=== PATIENT | male | born 1980 | race Caucasian/White ===

== ENCOUNTER 2016-07-19 18:54 | Observation (INO) | payer SELFPAY ==
[~2016-07-19] VITALS: Ht 185.4 cm; Wt 106.8 kg
[2016-07-19 18:56] VITALS: BP 138/83; PULSE 73; RESP 16; TEMP 98.2; O2SAT 96
--- NOTE | 2016-07-19 19:43 | PD ---
HPI Chief Complaint: Chest Pain Time Seen by Provider: 19:41 Travel History International Travel<30 days: No Contact w/Intl Traveler<30days: No Traveled to known affect area: No History of Present Illness HPI 35-year-old male with no significant medical history presents to the emergency department for evaluation a left-sided chest pain. Patient states it began this afternoon and did not go away. He states it's been happening more frequently over the last 2 weeks. He states the pain in his left chest described as sharp and stabbing. He states he has some aching in the left side of his neck associated with it. No nausea or vomiting. No shortness of breath. No focal deficits or weakness. Patient does smoke 2 packs of tobacco cigarettes daily. He states he always has wheezes in a "smoker's cough." He has no other symptoms to report at this time. [facility] Past Medical History Medical History: Denies Significant Hx Social History Tobacco Use: Yes Allergies-Medications (Allergen,Severity, Reaction): Coded Allergies: Keflex (Verified Allergy, Severe, Shortness of Breath, 07/19/16) Penicillin (Verified Allergy, Severe, Shortness of Breath, 07/19/16) Reported Meds & Prescriptions Reported Meds & Active Scripts Active Review of Systems Except as stated in HPI: all other systems reviewed are Neg Physical Exam Narrative GENERAL: Well-nourished male patient, ambulatory and in no acute distress SKIN: Warm and dry. HEAD: Atraumatic. Normocephalic. EYES: Pupils equal and round. No scleral icterus. No injection or drainage. ENT: No nasal bleeding or discharge. Mucous membranes pink and moist. NECK: Trachea midline. No JVD. CARDIOVASCULAR: Regular rate and rhythm. No murmur appreciated. RESPIRATORY: No accessory muscle use. Wheezes throughout. Breath sounds equal bilaterally. GASTROINTESTINAL: Abdomen soft, non-tender, nondistended. Hepatic and splenic margins not palpable. MUSCULOSKELETAL: No obvious deformities. No clubbing. No cyanosis. No edema. NEUROLOGICAL: Awake and alert. No obvious cranial nerve deficits. Motor grossly within normal limits. Normal speech. PSYCHIATRIC: Appropriate mood and affect; insight and judgment normal. Data Data Last Documented VS Vital Signs Date Time Temp Pulse Resp B/P Pulse Ox O2 Delivery O2 Flow Rate FiO2 07/19/16 22:16 97.8 72 18 126/73 95 Room Air Orders Electrocardiogram (07/19/16 19:11) Complete Blood Count With Diff (07/19/16 19:11) Basic Metabolic Panel (Bmp) (07/19/16 19:11) Ckmb (Isoenzyme) Profile (07/19/16 19:11) Troponin I (07/19/16 19:11) Prothrombin Time / Inr (Pt) (07/19/16 19:32) Act Partial Throm Time (Ptt) (07/19/16 19:32) Chest, Single Ap (07/19/16 19:32) Aspirin Chew (Aspirin Chew) (07/19/16 19:45) Magnesium (Mg) (07/19/16 19:11) CKMB (07/19/16 19:34) CKMB% (07/19/16 19:34) Methylprednisolone So Succ Inj (Solumedr (07/19/16 23:15) Albuterol-Ipratropium Neb (Duoneb Neb) (07/19/16 23:15) Admit Order (Ed Use Only) (07/19/16 23:05) Labs Laboratory Tests Test 07/19/16 19:34 White Blood Count 10.5 TH/MM3 Red Blood Count 5.32 MIL/MM3 Hemoglobin 16.9 GM/DL Hematocrit 48.2 % Mean Corpuscular Volume 90.6 FL Mean Corpuscular Hemoglobin 31.7 PG Mean Corpuscular Hemoglobin 34.9 % Concent Red Cell Distribution Width 13.1 % Platelet Count 209 TH/MM3 Mean Platelet Volume 8.3 FL Neutrophils (%) (Auto) 59.7 % Lymphocytes (%) (Auto) 29.8 % Monocytes (%) (Auto) 8.1 % Eosinophils (%) (Auto) 1.8 % Basophils (%) (Auto) 0.6 % Neutrophils # (Auto) 6.3 TH/MM3 Lymphocytes # (Auto) 3.1 TH/MM3 Monocytes # (Auto) 0.9 TH/MM3 Eosinophils # (Auto) 0.2 TH/MM3 Basophils # (Auto) 0.1 TH/MM3 CBC Comment DIFF FINAL Differential Comment Prothrombin Time 10.5 SEC Prothromb Time International 1.0 RATIO Ratio Activated Partial 28.7 SEC Thromboplast Time Sodium Level 139 MEQ/L Potassium Level 3.7 MEQ/L Chloride Level 104 MEQ/L Carbon Dioxide Level 25.2 MEQ/L Anion Gap 10 MEQ/L Blood Urea Nitrogen 16 MG/DL Creatinine 1.00 MG/DL Estimat Glomerular Filtration 86 ML/MIN Rate Random Glucose 96 MG/DL Calcium Level 8.6 MG/DL Magnesium Level 1.9 MG/DL Total Creatine Kinase 161 U/L Creatine Kinase MB 1.4 NG/ML Troponin I LESS THAN 0.02 NG/ML MDM Medical Decision Making Medical Screen Exam Complete: Yes Emergency Medical Condition: Yes Medical Record Reviewed: Yes Differential Diagnosis ACS versus chest wall pain versus pleuritic pain versus costochondritis Narrative Course 35-year-old male presents to the emergency department for evaluate left-sided chest pain. Patient appears without distress. Right now his pain is a 5 out of 10. Chest pain protocol was initiated. Patient was given aspirin in triage. Once a medical bed becomes available, patient will be transferred and care assumed by that provider. Scripts Albuterol 6.7 GM Inh (Proventil Hfa 6.7 GM Inh)90 Mcg/Act Aer1 Puff INH Q4H PRN (SHORTNESS OF BREATH) #1 INHALER Ref 0 Prov:Rachael Starks 07/20/16 Condition: Stable Quita Hinkle Jul 19, 2016 19:43
[2016-07-19] MEDS ORDERED: ASPIRIN 81 MG CHEW TAB PO ONE (19:45)
[2016-07-19 20:05] LABS: AUTOMATED NEUTROPHIL # 6.3 TH/MM3 (1.8-7.7); BASOPHIL # 0.1 TH/MM3 (0-0.2); BASOPHIL % 0.6 % (0.0-2.0); EOSINOPHIL # 0.2 TH/MM3 (0-0.4); EOSINOPHIL % 1.8 % (0.0-4.0); HEMATOCRIT 48.2 % (39.0-51.0); HEMO FLAGS DIFF FINAL; LYMPH % 29.8 % (9.0-44.0); LYMPHOCYTE # 3.1 TH/MM3 (1.0-4.8); MEAN CELL VOLUME 90.6 FL (80.0-100.0); MEAN CORPUSCULAR HEMOGLOBIN 31.7 PG (27.0-34.0); MEAN CORPUSCULAR HGB CONC 34.9 % (32.0-36.0); MONO % 8.1 % (0.0-8.0); NEUT % 59.7 % (16.0-70.0); PLATELET COUNT 209 TH/MM3 (150-450); RED BLOOD COUNT 5.32 MIL/MM3 (4.50-5.90); RED CELL DISTRIBUTION WIDTH 13.1 % (11.6-17.2); WHITE BLOOD COUNT 10.5 TH/MM3 (4.0-11.0)
[2016-07-19 20:22] LABS: ANION GAP 10 MEQ/L (5-15); BICARBONATE 25.2 MEQ/L (21.0-32.0); BLOOD UREA NITROGEN 16 MG/DL (7-18); CHLORIDE 104 MEQ/L (98-107); GLOMERULAR FILTRATION RATE 86 ML/MIN (>89); MAGNESIUM 1.9 MG/DL (1.5-2.5); POTASSIUM 3.7 MEQ/L (3.5-5.1); SODIUM (NA) 139 MEQ/L (136-145)
[2016-07-19 20:26] LABS: CREATINE KINASE 161 U/L (39-308)
[2016-07-19 20:37] LABS: APTT (PATIENT) 28.7 SEC (24.3-30.1); PROTHROMBIN TIME - PATIENT 10.5 SEC (9.8-11.6)
[2016-07-19 20:38] LABS: CKMB 1.4 NG/ML (0.5-3.6)
--- NOTE | 2016-07-19 21:36 | RADRPT ---
EXAM DATE/TIME: 07/19/2016 19:58 [facility] COMPARISON: No previous studies available for comparison. INDICATIONS : Chest pain. MEDICAL HISTORY : Smoking. SURGICAL HISTORY : None. ENCOUNTER: Subsequent ACUITY: 2 days PAIN SCORE: 7/10 LOCATION: Left middle chest FINDINGS: A single view of the chest demonstrates the lungs to be symmetrically aerated without evidence of mas s, infiltrate or effusion. The cardiomediastinal contours are unremarkable. Osseous structures are intact. CONCLUSION: No acute disease. Dony Bush MD on July 19, 2016 at 21:34 Board Certified Radiologist. This report was verified electronically.
[2016-07-19 22:16] VITALS: BP 126/73; PULSE 72; RESP 18; TEMP 97.8; O2SAT 95
--- NOTE | 2016-07-19 23:05 | PD ---
Physical Exam Narrative Patient was seen by my diploma dental assistant and signed out to me. Patient has history of reactive airway disease. Patient is a smoker. Examination: patient has mild to moderate expiratory wheezes bilaterally. No rhonchi. Data Data Last Documented VS Vital Signs Date Time Temp Pulse Resp B/P Pulse Ox O2 Delivery O2 Flow Rate FiO2 07/19/16 22:16 97.8 72 18 126/73 95 Room Air Orders Electrocardiogram (07/19/16 19:11) Complete Blood Count With Diff (07/19/16 19:11) Basic Metabolic Panel (Bmp) (07/19/16 19:11) Ckmb (Isoenzyme) Profile (07/19/16 19:11) Troponin I (07/19/16 19:11) Prothrombin Time / Inr (Pt) (07/19/16 19:32) Act Partial Throm Time (Ptt) (07/19/16 19:32) Chest, Single Ap (07/19/16 19:32) Aspirin Chew (Aspirin Chew) (07/19/16 19:45) Magnesium (Mg) (07/19/16 19:11) CKMB (07/19/16 19:34) CKMB% (07/19/16 19:34) Labs Laboratory Tests Test 07/19/16 19:34 White Blood Count 10.5 TH/MM3 Red Blood Count 5.32 MIL/MM3 Hemoglobin 16.9 GM/DL Hematocrit 48.2 % Mean Corpuscular Volume 90.6 FL Mean Corpuscular Hemoglobin 31.7 PG Mean Corpuscular Hemoglobin 34.9 % Concent Red Cell Distribution Width 13.1 % Platelet Count 209 TH/MM3 Mean Platelet Volume 8.3 FL Neutrophils (%) (Auto) 59.7 % Lymphocytes (%) (Auto) 29.8 % Monocytes (%) (Auto) 8.1 % Eosinophils (%) (Auto) 1.8 % Basophils (%) (Auto) 0.6 % Neutrophils # (Auto) 6.3 TH/MM3 Lymphocytes # (Auto) 3.1 TH/MM3 Monocytes # (Auto) 0.9 TH/MM3 Eosinophils # (Auto) 0.2 TH/MM3 Basophils # (Auto) 0.1 TH/MM3 CBC Comment DIFF FINAL Differential Comment Prothrombin Time 10.5 SEC Prothromb Time International 1.0 RATIO Ratio Activated Partial 28.7 SEC Thromboplast Time Sodium Level 139 MEQ/L Potassium Level 3.7 MEQ/L Chloride Level 104 MEQ/L Carbon Dioxide Level 25.2 MEQ/L Anion Gap 10 MEQ/L Blood Urea Nitrogen 16 MG/DL Creatinine 1.00 MG/DL Estimat Glomerular Filtration 86 ML/MIN Rate Random Glucose 96 MG/DL Calcium Level 8.6 MG/DL Magnesium Level 1.9 MG/DL Total Creatine Kinase 161 U/L Creatine Kinase MB 1.4 NG/ML Troponin I LESS THAN 0.02 NG/ML [facility] Supervised Visit with ANDRÉS: Yes Interpretation(s) 2300 p.m. EKG shows sinus rhythm nonspecific ST-T wave change. Incomplete right bundle-branch block. Chest x-ray shows no acute consolidation. CBC within normal limit. BMP within normal limit. Cardiac enzymes are normal. Narrative Course Albuterol with Atrovent unit dose treatment 2. Solu-Medrol 125 Mg IV. Diagnosis Primary Impression: Chest pain Qualified Code: R07.9 - Chest pain, unspecified type Additional Impression: Reactive airway disease Qualified Code: J45.20 - Reactive airway disease, mild intermittent, uncomplicated Admitting Information Admitting Physician Requests: Observation Scripts No Active Prescriptions or Reported Meds Condition: Stable Mayito Escalera MD Jul 19, 2016 23:05
[2016-07-19] MEDS ORDERED: methylPREDNISolone SOD SUCC 125 MG/2 ML VIAL IVP ONE (23:15)
[2016-07-19] MEDS ORDERED: ONDANSETRON HCL 4 MG/2 ML VIAL IV PRN (23:15)
[2016-07-19] MEDS ORDERED: SODIUM CHLORIDE 0.9% FLUSH 5 ML FLUSH IVF PRN (23:15)
[2016-07-19] MEDS ORDERED: ACETAMINOPHEN 500 MG CPLT PO PRN (23:15)
[2016-07-19] MEDS: RESP: ALBUTEROL 2.5 MG/IPRATROPIUM 0.5 MG NEB (SCH) INH ×2 (23:47→23:48)
[2016-07-19 23:51] VITALS: O2SAT 96
[2016-07-20] VITALS (7 sets, daily range): BP systolic 104–132; BP diastolic 67–76; PULSE 54–90; RESP 18–21; TEMP 98–98.9; O2SAT 93–96
[2016-07-20 00:41] LABS: CREATINE KINASE 130 U/L (39-308)
[2016-07-20 00:53] LABS: CKMB 0.8 NG/ML (0.5-3.6)
[2016-07-20 03:33] LABS: CREATINE KINASE 132 U/L (39-308)
[2016-07-20 03:49] LABS: CKMB 0.8 NG/ML (0.5-3.6)
[2016-07-20] MEDS ORDERED: SODIUM CHLORIDE 0.9% FLUSH 5 ML FLUSH IVF SCH (09:00)
[2016-07-20] MEDS: RESP: ALBUTEROL 2.5 MG/IPRATROPIUM 0.5 MG NEB (SCH) NEB ×2 (09:57→13:04)
--- NOTE | 2016-07-20 10:43 | EKG ---
Date Performed: 07/20/2016 Time Performed: 02:37:48 PTAGE: 35 years EKG: Sinus rhythm POSSIBLE RIGHT VENTRICULAR CONDUCTION DELAY BORDERLINE ECG Since PREVIOUS TRACING , no significant change noted PREVIOUS TRACIN07/19/2016 23.37 DOCTOR: Melissa Downey Interpretating Date/Time 07/20/2016 10:42:19
--- NOTE | 2016-07-20 10:44 | EKG ---
Date Performed: 07/19/2016 Time Performed: 23:37:47 PTAGE: 35 years EKG: Sinus rhythm NORMAL ECG Since PREVIOUS TRACING , no significant change noted PREVIOUS TRACIN07/19/2016 19.25 DOCTOR: Melissa Downey Interpretating Date/Time 07/20/2016 10:42:58
--- NOTE | 2016-07-20 10:46 | EKG ---
Date Performed: 07/19/2016 Time Performed: 19:25:07 PTAGE: 35 years EKG: Sinus rhythm INCOMPLETE RIGHT BUNDLE BRANCH BLOCK BORDERLINE ECG Since PREVIOUS TRACING , no significant change noted PREVIOUS TRACIN02/16/2016 21.48 DOCTOR: Melissa Downey Interpretating Date/Time 07/20/2016 10:45:12
--- NOTE | 2016-07-20 11:51 | HHI.DCPOC ---
Discharge Care Plan Diagnosis: (1) Atypical chest pain (2) Tobacco abuse Goals to Promote Your Health * To prevent worsening of your condition and complications * To maintain your health at the optimal level Directions to Meet Your Goals Take your medications as prescribed Follow your dietary instruction Follow activity as directed Keep your appointments as scheduled Take your immunizations and boosters as scheduled If your symptoms worsen call your PCP, if no PCP go to Urgent Care Center or Emergency Room Smoking is Dangerous to Your Health. Avoid second hand smoke Call the 24-hour hour crisis hotline for domestic abuse at Rachael Starks Jul 20, 2016 11:51
[2016-07-20] MEDS ORDERED: ALBU6.7H INH (12:02)
--- NOTE | 2016-07-20 16:15 | MH ---
cc: DENNIS CORDOVA MD DATE OF ADMISSION: 07/19/2016 DATE OF 1980 CHIEF COMPLAINT Chest tightness. HISTORY OF PRESENT ILLNESS This is a 35-year-old patient who presents to the emergency room with left anterior chest tightness, severity of 4/10 with radiation to the left side of his neck. He also was diaphoretic. There was no nausea or shortness of breath. No known precipitating factors or relieving factors. The patient states he has actually had chest pain two other times in the past year for which he was seen at a local hospital and also a hospital in [place]. There was never any formal cardiac testing done. The patient also states he has chest tightness on a daily basis. However, yesterday's episode at approximately 06:00 p.m. lasted about 30 minutes and was rated as a 7/10 were normally the tightness on a regular basis is around a 7/10. PAST MEDICAL HISTORY None. PAST SURGICAL HISTORY None. FAMILY HISTORY He is adopted, therefore does not know his biological parents, he does not have their history and he does not have any siblings. SOCIAL HISTORY He has smoked since the age of 7. Since the age of 13 he smoked one carton of cigarettes within a week's time. Currently he smokes two packs of cigarettes daily. He drinks [id number] nights out of the week a case of beer. Denies any illegal drug use. CARDIAC RISK FACTORS No known hypertension, diabetes or hyperlipidemia. He is active. He works with a construction company. He has not had any formal cardiac testing. He does not have a primary care provider or insurance at this time. ALLERGIES ALLERGIC TO KEFLEX. PENICILLIN. MEDICATIONS He is not on any on any prescription medications and does not take any vitamins or supplements. REVIEW OF SYSTEMS General: No recent illness, fevers, chills, weakness, malaise, change in appetite. HEENT: No headache or visual changes or nasal congestion or drainage or dysphagia. Cardiovascular: As stated above. No palpitations, intermittent leg pain or dizziness. Respiratory: States that over the past three years he wheezes on a daily basis. In the last two weeks he has had slight increase in sputum production and coughs on a regular basis. He relates all this to his longstanding smoking history. No known asthma or COPD. Abdomen: No bowel changes such as diarrhea, constipation, pain, distension, blood in stool or dark stool, change in appetite, nausea, vomiting or unintentional weight gain or weight loss. : No dysuria or urgency or frequency. Extremities: No lower leg edema. Musculoskeletal: No change in ROM. Neuro: No difficulty with balance, motor or sensory deficits, loss of consciousness. Skin: He has no concerning lesions. PHYSICAL EXAMINATION Vital Signs: Temperature 98, pulse 86, respiratory 19 and blood pressure 132/76 and 93% on room air. General: He is alert, well-nourished, well-developed, moderately obese, in no acute distress. Pleasant male. Head: Normocephalic, atraumatic. Eyes: Sclerae clear. Conjunctivae without injection. Pupils are equal and round. ENT: Mucous membranes are pink and moist. Neck: Supple. Trachea is midline. Cardiovascular: RRR without murmur, rub or gallop. No JVD. S1-S2. No S3. No S4. No carotid bruits appreciated. Respiratory: He has inspiratory and expiratory wheezing. Symmetrical chest rise. Able to speak in full sentences. There are no crackles or wheezing. No use of accessory muscles. Abdomen: Obese, soft, nontender, nondistended. No masses. Positive bowel tones. Extremities: Pulses +2 x 4. There is no dependent edema. Neuro: CN II-XII is grossly intact. Motor strength 5/5. Gait is within normal limits. Psych: He is alert and oriented x 3, has a pleasant affect, appropriate to mood, insight and judgment. Skin: Normal turgor, normal texture with sluggish capillary refill. There are no rashes. LABORATORY CBC is unremarkable. Chemistry is unremarkable. Three sets of cardiac enzymes are negative. Coagulations unremarkable. Chest x-ray read by the radiologist has a conclusion of no acute disease. Three EKGs show a normal sinus rhythm with no ST or T-segment changes. First EKG is noted to have an incomplete right bundle branch block. ASSESSMENT AND PLAN 1. Chest pain. The patient was admitted to the chest pain center and ruled out with three sets of EKGs and cardiac enzymes. He was seen and evaluated by Dr. Dennis Cordova this a.m. He underwent an exercise stress test which was unremarkable. He will be discharged later this afternoon, all has been discussed with him and he is agreeable to this plan of care. 2. Tobacco use. He has been strongly encouraged and stressed the importance of tobacco cessation. Discussed and counseled the patient to quit smoking in length. We have also placed a consult to see if he would be accepted to the [facility] for further testing. Regarding his probable restrictive lung disease, he is encouraged, if he is unable to go to the [facility] to follow to establish with a primary care provider. Dictated by: JAMARI Keys Harish Polk/JOSE /12:47 PM /4:13 PM
--- NOTE | 2016-07-21 15:36 | TR ---
Date Performed: 07/20/2016 Time Performed: 10:48:08 DOCTOR: Jacques Hughes DRUG LIST: CLINICAL HISTORY: CHEST PAIN REASON FOR TEST: Chest pain REASON FOR ENDING: OBSERVATION: CONCLUSION: Andre protocol completed. Stopped sec to reaching target heart rate and leg fatigue. Maximum VS=136 Target HR Achieved=86.0% Maximum RJ=082/80 Total Exercise Time=6:47. No ectopy. Good exercise tolerance. Upsloping J point depression. No reprod chest discomfort. Hypertensive bp respons e. Recovery quick and unremarkable. COMMENTS: Patient exercised using the Andre protocol. No electrocardiographic changes were seen to suggest ischemia. Hemodynamic response to exercise was normal. No significant arrhythmia was prese nt.
== END 2016-07-20 17:38 | disposition home or self-care (01) ==
LOC: NEPA 18:54 → NEDA 23:07 → NEPHCDU 07-20 03:13
PROVIDERS: ADMIT Internal Medicine Interventional Cardiology; ATTEND Internal Medicine Interventional Cardiology
DX: R07.89 Other chest pain (principal); J45.20 Mild intermittent asthma, uncomplicated; R94.31 Abnormal electrocardiogram [ECG] [EKG]; F17.210 Nicotine dependence, cigarettes, uncomplicated
CPT/HCPCS: 71010; 80048; 82550; 82552; 83735; 84484; 85025; 85610; 85730; 93005; 93017; 94640; 94664; 99285; G0378; J2930

== ENCOUNTER 2017-03-22 09:55 | Emergency (ER) | payer SELFPAY ==
[~2017-03-22] VITALS: Ht 185.4 cm; Wt 110.0 kg
[~2017-03-22 09:55] MED LIST: ALBU6.7H INH
[2017-03-22 09:57] VITALS: BP 142/95; PULSE 102; RESP 14; TEMP 98.2; O2SAT 99
--- NOTE | 2017-03-22 10:16 | PD ---
HPI Chief Complaint: Edema Time Seen by Provider: 10:10 Travel History International Travel<30 days: No Contact w/Intl Traveler<30days: No Traveled to known affect area: No History of Present Illness HPI Is a 36-year-old man who presents emergency department complaining of right testicle pain. Going On for several days. He states it stopped doing before but it got better on its own. He states maybe a little bit of penile discharge several days ago but is not real sure. No dysuria. Sexually active with one woman only, but not recently. No trauma. No other complaints. History Social History Alcohol Use: Yes Tobacco Use: Yes Allergies-Medications (Allergen,Severity, Reaction): Coded Allergies: cephalexin (Unverified Allergy, Severe, Shortness of Breath, 03/22/17) penicillin G (Unverified Allergy, Severe, Shortness of Breath, 03/22/17) Reported Meds & Prescriptions Reported Meds & Active Scripts Active No Active Prescriptions or Reported Medications Review of Systems Except as stated in HPI: all other systems reviewed are Neg Physical Exam Narrative GENERAL: Well-appearing 36-year-old man, no acute distress. SKIN: Focused skin assessment warm/dry. HEAD: Atraumatic. Normocephalic. EYES: Pupils equal and round. No scleral icterus. No injection or drainage. ENT: No nasal bleeding or discharge. Mucous membranes pink and moist. NECK: Trachea midline. No JVD. CARDIOVASCULAR: Regular rate and rhythm. No murmur appreciated. RESPIRATORY: No accessory muscle use. Clear to auscultation. Breath sounds equal bilaterally. GASTROINTESTINAL: Abdomen soft, non-tender, nondistended. Hepatic and splenic margins not palpable. : Normal external male genitalia. Couple small fleshy papules on the penile shaft. Right testicle with epididymal swelling and tenderness. Testicle itself appears roughly normal size. There is normal lie of testicles. No penile discharge. Data Data Last Documented VS Vital Signs Date Time Temp Pulse Resp B/P (MAP) Pulse Ox O2 Delivery O2 Flow Rate FiO2 03/22/17 09:57 98.2 102 14 142/95 (111) 99 Orders Orders Us Testicles W Doppler (03/22/17 ) Urinalysis - C+S If Indicated (03/22/17 10:10) Gc And Chlamydia Pcr (03/22/17 10:10) Urine Culture (03/22/17 10:14) Labs Laboratory Tests Test 03/22/17 10:14 Urine Color YELLOW Urine Turbidity CLEAR Urine pH 5.5 Urine Specific [place] 1.022 Urine Protein NEG mg/dL Urine Glucose (UA) NEG mg/dL Urine Ketones NEG mg/dL Urine Occult Blood TRACE Urine Nitrite NEG Urine Bilirubin NEG Urine Urobilinogen LESS THAN 2.0 MG/DL Urine Leukocyte Esterase SMALL Urine RBC 2 /hpf Urine WBC 10 /hpf Urine Mucus FEW /lpf Microscopic Urinalysis Comment CULTURE INDICATED Chlamydia trachomatis DNA (PCR) NOT DETECTED Neisseria gonorrhoeae DNA (PCR) DETECTED MDM Medical Decision Making Medical Screen Exam Complete: Yes Emergency Medical Condition: Yes Interpretation(s) LABS: UA with trace pyuria. Testicular ultrasound: Mild hyperemic epididymis. Differential Diagnosis Orchitis, epididymitis, infection, other Narrative Course 36-year-old male with likely varicocele, less likely epididymitis. We'll check labs, ultrasound, likely discharge. FINAL: Ultrasound CONSIST WITH EPIDIDYMITIS, TRACE PYURIA SUGGESTIVE OF EPIDIDYMITIS. Diagnosis Primary Impression: Epididymitis Additional Instructions: Take antibiotics as prescribed. Follow up with her primary doctor in the next 2-4 days. Return to the emergency department for any new or worsening symptoms. Med/Other Pt SpecificInfo: Prescription(s) given Scripts Doxycycline Hyclate (Doxycycline Hyclate) 100 Mg Cap 100 MG PO BID for Infection, #28 CAP 0 Refills Prov: Marol Collins MD 03/22/17 Disposition: 01 DISCHARGE HOME Condition: Stable Marlo Collins MD Mar 22, 2017 10:16
[2017-03-22 10:38] LABS: BLOOD, URINE TRACE (NEG); COMMENT (UR) CULTURE INDICATED; CULTURE IF INDICATED CULTURE INDICATED; GLUCOSE,URINE NEG (NEG); KETONE, URINE NEG (NEG); MUCUS URINE FEW /lpf (OCC); NITRITE,URINE NEG (NEG); PH, URINE 5.5 (5.0-8.5); URINE COLOR YELLOW (YELLW/STRAW)
[2017-03-22 12:49] LABS: CHLAMYDIA PCR NOT DETECTED (NOT DETECT); NEISSERIA PCR DETECTED (NOT DETECT)
--- NOTE | 2017-03-22 12:50 | RADRPT ---
EXAM DATE/TIME: 03/22/2017 10:24 [facility] COMPARISON: No previous studies available for comparison. INDICATIONS : Testicular pain. MEDICAL HISTORY : Anxiety. SURGICAL HISTORY : Right leg fracture surgery. ENCOUNTER: Initial ACUITY: 1 day PAIN SCORE: 6/10 LOCATION: Bilateral scrotum. MEASUREMENTS: RIGHT TESTICLE: 3.4 x 2.7 x 4.8cm LEFT TESTICLE: 3.2 x 2.4 x 5.5cm FINDINGS: RIGHT TESTICLE: Homogeneous echotexture without intra or extratesticular mass. Blood flow is symmetric and within no rmal limits. Small hydrocele. Epididymis is hyperemic. LEFT TESTICLE: Homogeneous echotexture without intra or extratesticular mass. Blood flow is symmetric and within no rmal limits. No hydrocele or varicocele. Epididymis is notable for a small spermatocele. SCROTUM: Within normal limits. CONCLUSION: Mildly hyperemic epididymis on the right. Testicles are normal Baltazar Diggs MD on March 22, 2017 at 12:46 Board Certified Radiologist. This report was verified electronically.
[2017-03-22] MEDS ORDERED: DOXY100C PO (13:02)
[2017-03-22] MEDS ORDERED: NAPR500T PO (13:11)
[2017-03-22] MEDS ORDERED: AZITHROMYCIN PWD FOR SUSP 1 GM PACKET PO ONE (13:15)
[2017-03-22] MEDS ORDERED: LIDOCAINE HCL 1% 50 ML VIAL IM ONE (13:15)
[2017-03-22 13:18] VITALS: BP 138/72
== END 2017-03-22 13:21 | disposition home or self-care (01) ==
LOC: NEPD 09:55
DX: N45.1 Epididymitis (principal)
CPT/HCPCS: 76870; 81001; 87086; 87491; 87591; 93975; 99284

== ENCOUNTER 2017-03-24 18:52 | Emergency (ER) | payer SELFPAY ==
[~2017-03-24] VITALS: Ht 185.4 cm; Wt 110.0 kg
[~2017-03-24 18:52] MED LIST changes: -ALBU6.7H INH; +DOXY100C PO; +NAPR500T PO
[2017-03-24 18:54] VITALS: BP 152/88; PULSE 91; RESP 20; TEMP 98.5; O2SAT 96
[2017-03-25] MEDS ORDERED: XANA2TAB2 PO (06:34)
== END 2017-03-24 21:13 | disposition left against medical advice (07) ==
LOC: NED 18:52
DX: Z53.21 Procedure and treatment not carried out due to patient leaving prior to being seen by health care provider (principal)
CPT/HCPCS: 99281

== ENCOUNTER 2017-03-25 06:22 | Emergency (ER) | payer SELFPAY ==
[~2017-03-25] VITALS: Ht 185.4 cm; Wt 110.0 kg
[2017-03-25 06:24] VITALS: BP 154/88; PULSE 97; RESP 16; TEMP 98.2; O2SAT 97
[2017-03-25] MEDS ORDERED: AZITHROMYCIN 250 MG TAB PO ONE (06:30)
[2017-03-25] MEDS ORDERED: XANA2TAB2 PO (06:34)
--- NOTE | 2017-03-25 06:43 | PD ---
HPI Chief Complaint: Medication Refill Request Time Seen by Provider: 06:26 Travel History International Travel<30 days: No Contact w/Intl Traveler<30days: No Traveled to known affect area: No History of Present Illness HPI 36-year-old white male presents to emergency department stating that he was notified that his urinalysis was positive for gonorrhea. He was advised to come back to get treated. The patient states that he is taking his doxycycline which seem to be helping his infection. She denies any fever chills. No nausea vomiting. No bowel pain. No urinary symptoms. PFSH Past Medical History Anxiety: Yes Cardiovascular Problems: No Diminished Hearing: No Tetanus Vaccination: < 5 Years Influenza Vaccination: No Social History Alcohol Use: Yes (2 per week) Tobacco Use: Yes (one pk per week) Substance Use: No Allergies-Medications (Allergen,Severity, Reaction): Coded Allergies: cephalexin (Unverified Allergy, Severe, Shortness of Breath, 03/25/17) penicillin G (Unverified Allergy, Severe, Shortness of Breath, 03/25/17) Reported Meds & Prescriptions Reported Meds & Active Scripts Active Doxycycline Hyclate 100 Mg Cap 100 Mg PO BID Reported Xanax (Alprazolam) 2 Mg Tab 2 Mg PO Q8H PRN Review of Systems Except as stated in HPI: all other systems reviewed are Neg Physical Exam Narrative GENERAL: This is a well-nourished, well-developed patient, in no apparent distress. SKIN: No rashes, ecchymoses or lesions. Warm and dry. HEAD: Atraumatic. Normocephalic. EYES: PERRL, EOMI, no discharge or injection. No scleral icterus. EARS: Clear NOSE: Nasal turbinates appear normal. THROAT: Mucosa pink and moist. Airway patent. NECK: Trachea midline. supple, moves head freely. LUNGS: Clear to auscultation. CV: Regular in rhythm. ABDOMEN: Soft nontender. EXT: No clubbing cyanosis or edema. Data Data Last Documented VS Vital Signs Date Time Temp Pulse Resp B/P (MAP) Pulse Ox O2 Delivery O2 Flow Rate FiO2 03/25/17 06:34 20 03/25/17 06:24 98.2 97 154/88 (110) 97 Room Air Orders Orders Azithromycin (Zithromax) (9/29/17 06:30) [facility] Medical Decision Making Medical Screen Exam Complete: Yes Emergency Medical Condition: Yes Medical Record Reviewed: Yes Interpretation(s) UA: Positive for gonorrhea Differential Diagnosis MDM: Moderate Differential diagnoses: Chlamydia, gonorrhea, syphilis, chancroid, hepatitis, HIV, herpes Narrative Course Patient has a penicillin and cephalosporin allergy. Patient is given 2 g of Zithromax by mouth here in the ER. Diagnosis Primary Impression: Gonorrhea Patient Instructions: General Instructions Additional Instructions: Rest. Partner notification. Follow-up with the [facility] Department for further STD testing such as HIV, syphilis and hepatitis. No intercourse until all partners treated. Always use a condom. Return to the ER if any problems. Med/Other Pt SpecificInfo: No Meds Exist/No RX given Disposition: 01 DISCHARGE HOME Condition: Dony Mckeon Mar 25, 2017 06:43
== END 2017-03-25 06:44 | disposition home or self-care (01) ==
LOC: NEPD 06:22
DX: A54.9 Gonococcal infection, unspecified (principal)
CPT/HCPCS: 99281